=== PATIENT | female | born 1965 | race Caucasian/White ===

== ENCOUNTER 2025-07-25 07:23 | Day surgery (SDC) | payer BC ==
[2025-07-25] MEDS ORDERED: Propofol 200 MG/20 ML SDV IV ONE (07:24)
[2025-07-25] MEDS ORDERED: Lactated Ringers 1,000 ML IV ONE (07:24)
[2025-07-25] MEDS: Lactated Ringers 1,000 ML IV SCH (09:00)
[2025-07-25] MEDS ORDERED: Propofol 200 MG/20 ML SDV ONE (09:00)
[2025-07-25 11:32] VITALS: BP 123/71; PULSE 76
== END 2025-07-25 10:45 | disposition home or self-care (01) ==
LOC: DL.ENDO 07:23 → MERGE 08:30 → DL.ENDO 10:45
PROVIDERS: ATTEND Internal Medicine Gastroenterology
DX: D50.9 Iron deficiency anemia, unspecified (principal); I10 Essential (primary) hypertension; E66.09 Other obesity due to excess calories; E78.00 Pure hypercholesterolemia, unspecified; E11.9 Type 2 diabetes mellitus without complications; Z86.16 Personal history of COVID-19; Z68.35 Body mass index [BMI] 35.0-35.9, adult; Z79.84 Long term (current) use of oral hypoglycemic drugs; Z79.899 Other long term (current) drug therapy
CPT/HCPCS: 43239; J2704; J7120; S5010

== ENCOUNTER 2025-07-27 05:29 | Day surgery (SDC) | payer BC ==
[2025-07-27] MEDS ORDERED: Propofol 200 MG/20 ML SDV IV ONE (05:30)
[2025-07-27] MEDS ORDERED: Lactated Ringers 1,000 ML IV ONE (05:30)
[2025-07-27] MEDS ORDERED: Propofol 200 MG/20 ML SDV ONE ×2 (05:52→06:35)
[2025-07-27] MEDS: Lactated Ringers 1,000 ML IV SCH (05:58)
[2025-07-27 07:27] VITALS: BP 110/67; PULSE 74
== END 2025-07-27 07:58 | disposition home or self-care (01) ==
LOC: DL.ENDO 05:29 → MERGE 06:30 → DL.ENDO 07:58
PROVIDERS: ATTEND Internal Medicine Gastroenterology
DX: K64.4 Residual hemorrhoidal skin tags (principal); D50.9 Iron deficiency anemia, unspecified; I10 Essential (primary) hypertension; E11.9 Type 2 diabetes mellitus without complications; E78.00 Pure hypercholesterolemia, unspecified; E66.09 Other obesity due to excess calories; Z68.35 Body mass index [BMI] 35.0-35.9, adult; Z79.899 Other long term (current) drug therapy
CPT/HCPCS: 45378; J2704; J7120; S5010; 00812